=== PATIENT | female | born 1995 | race Caucasian/White ===

== ENCOUNTER 2022-12-06 07:20 | Emergency (ER) | payer OTHER ==
[2022-12-06 07:36] VITALS: BP 98/58; PULSE 82; RESP 18; TEMP 98; BMI 25.0
== END 2022-12-06 08:38 | disposition home or self-care (01) ==
LOC: JER 07:20 → JERFT 07:20
DX: R10.2 Pelvic and perineal pain (principal); N75.1 Abscess of Bartholin's gland
CPT/HCPCS: 99283-25